=== PATIENT | male | born 1995 | race Caucasian/White ===

== ENCOUNTER 2018-12-19 12:34 | Emergency (ER) | payer BC ==
[~2018-12-19] VITALS: Ht 182.9 cm; Wt 68.2 kg
[2018-12-19 12:36] VITALS: Ht 182.9 cm; Wt 68.2 kg
[2018-12-19] MEDS ORDERED: ZOFRAN ODT4 MG/UDTAB PO (13:40)
[2018-12-19] MEDS ORDERED: LOMOTIL 2.5-0.1 EAC1 PO (13:40)
[2018-12-19 14:59] VITALS: BP 153/53
== END 2018-12-19 14:59 | disposition home or self-care (01) ==
LOC: D.ER 12:34
DX: R11.10 Vomiting, unspecified (principal); R19.7 Diarrhea, unspecified